=== PATIENT | male | born 1945 | race Caucasian/White ===

== ENCOUNTER 2016-12-30 13:18 | Emergency (ER) | payer OTHER ==
[~2016-12-30] VITALS: Ht 175.3 cm; Wt 81.1 kg
[2016-12-30 13:55] VITALS: BP 170/96
== END 2016-12-30 13:56 | disposition home or self-care (01) ==
LOC: EME 13:18
DX: S50.812A Abrasion of left forearm, initial encounter (principal); S50.811A Abrasion of right forearm, initial encounter; Y04.0XXA Assault by unarmed brawl or fight, initial encounter; Y99.0 Civilian activity done for income or pay; Z87.891 Personal history of nicotine dependence
CPT/HCPCS: 99281; 99284